=== PATIENT | male | born 1945 | race Caucasian/White ===

== ENCOUNTER 2020-12-26 08:52 | Day surgery (SDC) | payer OTHER ==
[~2020-12-26 08:52] MED LIST: FORTAMET1000 MG PO; LOVAZA1 GM PO; MAXIMUM DAILY1 EACH PO; MELOXICAM15 MG PO; SKELAXIN800 MG PO; TOPROL XL25 M1 PO; ZETIA10 MG PO
== END 2020-12-26 23:50 | disposition home or self-care (01) ==
LOC: CIR.AMB 08:52
PROVIDERS: ATTEND Urology
DX: N20.0 Calculus of kidney (principal); Z20.822 Contact with and (suspected) exposure to COVID-19

== ENCOUNTER 2021-01-07 09:48 | Outpatient (CLI) | payer OTHER | END 2021-01-07 09:49 | disposition home or self-care (01) | LOC: LAB 09:48 | PROVIDERS: ATTEND Urology | DX: N30.00 Acute cystitis without hematuria (principal) ==

== ENCOUNTER 2021-01-11 08:00 | Inpatient (IN) | payer OTHER ==
[~2021-01-11] VITALS: Ht 172.7 cm; Wt 87.1 kg
[2021-01-16] MEDS ORDERED: DICLOFENAC SOD100 GM (16:40)
[2021-01-16] MEDS ORDERED: HYDROCHLOROTH12.5 MG (16:40)
[2021-01-17] MEDS ORDERED: CLOTRIMAZOLE-BE15 G1 (08:51)
[2021-01-17] MEDS ORDERED: SILODOSIN8 MG (08:51)
== END 2021-01-18 12:09 | disposition home or self-care (01) | DRG 661 ==
LOC: SURH 01-16 08:00 → SURG 01-16 11:22 → O/R 01-16 11:22 → SURH 01-16 14:30 → SURG 01-16 19:10
PROVIDERS: ADMIT Urology; ATTEND Urology
PROC: 0TC78ZZ Extirpation of Matter from Left Ureter, Via Natural or Artificial Opening Endoscopic (ICD-10-PCS; 2021-01-16)
PROC: 0T9780Z Drainage of Left Ureter with Drainage Device, Via Natural or Artificial Opening Endoscopic (ICD-10-PCS; 2021-01-16)
PROC: BT02ZZZ Plain Radiography of Left Kidney (ICD-10-PCS; 2021-01-16)
PROC: 0TP980Z Removal of Drainage Device from Ureter, Via Natural or Artificial Opening Endoscopic (ICD-10-PCS; 2021-01-16)
PROC: 0T778DZ Dilation of Left Ureter with Intraluminal Device, Via Natural or Artificial Opening Endoscopic (ICD-10-PCS; principal; 2021-01-16 14:30)
DX: N20.1 Calculus of ureter (principal)

== ENCOUNTER 2021-05-22 09:12 | Outpatient (CLI) | payer OTHER ==
[~2021-05-22 09:12] MED LIST changes: +CLOTRIMAZOLE-BE15 G1; +DICLOFENAC SOD100 GM; +HYDROCHLOROTH12.5 MG; +SILODOSIN8 MG
== END 2021-05-22 15:00 | disposition home or self-care (01) ==
LOC: LAB 09:12
PROVIDERS: ATTEND Radiology Diagnostic Radiology
DX: N28.89 Other specified disorders of kidney and ureter (principal)

== ENCOUNTER 2021-05-28 07:11 | Outpatient (CLI) | payer OTHER | END 2021-05-28 07:21 | disposition home or self-care (01) | LOC: TOM 07:11 | PROVIDERS: ATTEND Urology | DX: N20.1 Calculus of ureter (principal) | CPT/HCPCS: 74177; Q9965 ==

== ENCOUNTER 2023-01-30 10:15 | Outpatient (CLI) | payer OTHER | END 2023-01-30 10:25 | disposition home or self-care (01) | LOC: SONOGRAMA 10:15 | PROVIDERS: ATTEND Urology | DX: N20.1 Calculus of ureter (principal) ==